=== PATIENT | male | born 1960 | race African-American/Black ===

== ENCOUNTER 2021-07-19 16:39 | Inpatient (IN) ==
[2021-07-19 17:21] LABS: ABS Basophils 0.1 10^3/ul (0-0.2); ABS Lymphocytes 1.3 10^3/ul (1.0-4.8); ABS Monocytes 0.4 10^3/ul (0-0.8); ABS Neutrophils 5.2 10^3/ul (1.5-7.7); Eosinophil % 0.2 %; Hematocrit 39 % (42-52); Hemoglobin 12.5 g/dL (14.0-18.0); Lymphocyte % 18.7 %; Mean Corpuscular HGB Conc 32 g/dL (31-36); Mean Corpuscular Hemoglobin 20 pg (27-31); Mean Corpuscular Volume 64 fL (80-94); Mean Platelet Volume 7.8 fL (7.4-10.4); Nucleated Red Blood Cells % 0.1; Platelet Count 240 10^3/uL (150-450); Red Blood Count 6.13 10^6 /uL (4.18-5.48); Red Cell Distribution Width 16 % (10-15); White Blood Count 6.9 10^3/uL (3.5-10.8)
[2021-07-19 17:24] LABS: INR 1.16 (0.86-1.15)
[2021-07-19 17:39] LABS: ALT 23 U/L (7-52); AST 21 U/L (13-39); Albumin 4.1 g/dL (3.2-5.2); Albumin/Globulin Ratio 1.5 (1-3); Alkaline Phosphatase 65 U/L (35-149); Anion Gap 6 mmol/L (2-11); Blood Urea Nitrogen 16 mg/dL (6-24); CO2 Carbon Dioxide 27 mmol/L (22-32); Calcium 9.4 mg/dL (8.6-10.3); Chloride 106 mmol/L (101-111); Globulin 2.7 g/dL (2-4); Glucose 100 mg/dL (70-100); Potassium 4.3 mmol/L (3.5-5.0); Sodium 139 mmol/L (135-145); Total Protein 6.8 g/dL (6.4-8.9)
[2021-07-19 17:41] LABS: Microcytosis 3+
[2021-07-19 17:42] LABS: Anisocytosis 1+; Basophilic Stippling 1+; Hypochromasia 1+; Target Cells 2+; Troponin I 0.24 ng/mL (<0.03)
[2021-07-19 17:43] LABS: Acanthocytes 1+
[2021-07-19] MEDS ORDERED: Enoxaparin 80 MG/0.8 ML SYR SUBCUT ONE (19:16)
[2021-07-19] MEDS ORDERED: Atropine 1 MG/ML INJ 1 ML VIAL IV PUSH PRN (19:41)
[2021-07-19] MEDS ORDERED: NS 0.9% 1000 ml BAG 1,000 ML IV ONE (19:41)
[2021-07-19] MEDS ORDERED: Lactated Ringers 1000 ml BAG 1,000 ML IV ONE (19:54)
[2021-07-19] MEDS ORDERED: Morphine 4 MG/ML VIAL (1 ml) IV ONE (20:08)
[2021-07-19] MEDS ORDERED: Nitro 2% OINT (Nitroglycerin) 1 INCH/PAK TOPICAL ONE (20:40)
[2021-07-19] MEDS ORDERED: NS 0.9% 250 ml 250 ML IV ONE (21:36)
[2021-07-19] MEDS ORDERED: Ondansetron 4 mg VIAL 2 MG/ML 2 ml VIAL IV PRN (21:42)
[2021-07-19 21:50] LABS: Troponin I 0.47 ng/mL (<0.03)
[2021-07-19 22:12] LABS: Rapid COVID-19 Molecular Undetected (Undetected)
[2021-07-19 23:56] LABS: Troponin I 0.73 ng/mL (<0.03)
[2021-07-20 03:37] LABS: ABS Lymphocytes 1.1 10^3/ul (1.0-4.8); ABS Monocytes 0.4 10^3/ul (0-0.8); ABS Neutrophils 6.6 10^3/ul (1.5-7.7); Hematocrit 39 % (42-52); Hemoglobin 12.4 g/dL (14.0-18.0); Lymphocyte % 13.3 %; Mean Corpuscular HGB Conc 32 g/dL (31-36); Mean Corpuscular Hemoglobin 21 pg (27-31); Mean Corpuscular Volume 64 fL (80-94); Mean Platelet Volume 8.8 fL (7.4-10.4); Platelet Count 238 10^3/uL (150-450); Red Blood Count 6.07 10^6 /uL (4.18-5.48); Red Cell Distribution Width 16 % (10-15); White Blood Count 8.1 10^3/uL (3.5-10.8)
[2021-07-20 03:47] LABS: Anion Gap 8 mmol/L (2-11); CO2 Carbon Dioxide 26 mmol/L (22-32); Calcium 9.1 mg/dL (8.6-10.3); Chloride 104 mmol/L (101-111); Potassium 4.3 mmol/L (3.5-5.0); Sodium 138 mmol/L (135-145)
[2021-07-20 03:53] LABS: Blood Urea Nitrogen 17 mg/dL (6-24); Cholesterol 178 mg/dL; Glucose 111 mg/dL (70-100); HDL Cholesterol 51.8 mg/dL; LDL Cholesterol 110 mg/dL; Triglycerides 81 mg/dL
[2021-07-20 03:54] LABS: Troponin I 3.98 ng/mL (<0.03)
[2021-07-20] MEDS ORDERED: Lactated Ringers 500 ml BAG 500 ML IV SCH (05:00)
[2021-07-20] MEDS ORDERED: Perflutren Lipid Microsphere 3 ML VIAL ONE (07:19)
[2021-07-20 07:33] LABS: Troponin I 7.59 ng/mL (<0.03)
[2021-07-20] MEDS ORDERED: NS 0.9% 1000 ml BAG 1,000 ML IV SCH (08:15)
[2021-07-20] MEDS ORDERED: Heparin 1,000 UNIT/ML 10 ml (10,000 UNITS) CATHLAB/DIALYSIS ONE ×2 (08:21→09:38)
[2021-07-20] MEDS ORDERED: Heparin 2 UNITS/ML 1000 mls 2,000 ML IV ONE (08:21)
[2021-07-20] MEDS ORDERED: fentaNYL 100 mcg/2 ml 50 MCG/ML VIAL ONE (08:21)
[2021-07-20] MEDS ORDERED: nitroGLYCERIN DRIP 25,000 MCG/250 ML BTL ONE (08:21)
[2021-07-20] MEDS ORDERED: Midazolam 5 mg/5 ml VIAL 1 mg/ml 5 ml VIAL (5 mg) ONE (08:21)
[2021-07-20] MEDS ORDERED: Lidocaine 1% VIAL 10 MG/ML VIAL ONE (08:22)
[2021-07-20] MEDS ORDERED: niCARdipine 0.1MG/ML IVPREMIX 20 MG/200 ML BAG IV ONE (08:22)
[2021-07-20] MEDS ORDERED: Iohexol 350 (CONTRAST) 200 ML MDV IV ONE ×2 (08:22→09:26)
[2021-07-20] MEDS ORDERED: Heparin 2 UNITS/ML 1000 mls 1,000 ML IV ONE (09:39)
[2021-07-21 05:43] LABS: ABS Lymphocytes 0.9 10^3/ul (1.0-4.8); ABS Monocytes 0.7 10^3/ul (0-0.8); Eosinophil % 0.5 %; Hematocrit 36 % (42-52); Hemoglobin 11.6 g/dL (14.0-18.0); Lymphocyte % 9.3 %; Mean Corpuscular HGB Conc 32 g/dL (31-36); Mean Corpuscular Hemoglobin 21 pg (27-31); Mean Corpuscular Volume 64 fL (80-94); Mean Platelet Volume 8.3 fL (7.4-10.4); Nucleated Red Blood Cells % 0.2; Platelet Count 219 10^3/uL (150-450); Red Blood Count 5.64 10^6 /uL (4.18-5.48); Red Cell Distribution Width 16 % (10-15); White Blood Count 9.7 10^3/uL (3.5-10.8)
[2021-07-21 05:54] LABS: Calcium 8.7 mg/dL (8.6-10.3); Magnesium 1.8 mg/dL (1.9-2.7); Potassium 3.8 mmol/L (3.5-5.0)
[2021-07-21] MEDS ORDERED: Magnesium Sulfate 2 gm BAG 2 GM/50 ML BAG IVPB ONE (07:12)
[2021-07-21 09:15] VITALS: BP 119/82
== END 2021-07-21 12:40 | disposition home or self-care (01) | DRG 247 ==
LOC: ED 16:39 → SUATTDRO 21:59 → ICU 21:59
PROVIDERS: ADMIT Internal Medicine; ATTEND Internal Medicine